=== PATIENT | male | born 1970 | race Caucasian/White ===

== ENCOUNTER 2024-03-24 15:20 | Inpatient (IN) | payer OTHER ==
[~2024-03-24] VITALS: Ht 177.8 cm; Wt 78.4 kg
[2024-03-24] VITALS (43 sets, daily range): BP systolic 84–139; BP diastolic 49–80; TEMP 97.5; O2SAT 98–100
[2024-03-24 16:32] LABS: BASO % 0.2 % (0.0-1.0); HEMATOCRIT 43.6 % (42.0-52.0); LYMPH # 0.5 10^3/uL (1.5-5.0); LYMPH % 3.7 % (24.0-44.0); MEAN CORPUSCULAR HEMOGLOBIN 30.2 pg (27.0-33.0); MEAN CORPUSCULAR HGB CONC 34.4 g/dl (32.0-36.5); MEAN CORPUSCULAR VOLUME 87.7 fl (80.0-96.0); MONO # 0.4 10^3/uL (0.0-0.8); MONO % 3.4 % (2.0-8.0); NEUTROPHILS # 11.8 10^3/uL (1.5-8.5); NEUTROPHILS % 92.2 % (36.0-66.0); PLATELET COUNT, AUTOMATED 173 10^3/uL (150-450); RED BLOOD COUNT 4.97 10^6/uL (4.30-6.10); WHITE BLOOD COUNT 12.8 10^3/uL (4.0-10.0)
[2024-03-24 17:02] LABS: BLOOD UREA NITROGEN 14 MG/DL (9-23); CALCIUM LEVEL 8.6 MG/DL (8.5-10.1); CARBON DIOXIDE LEVEL 24 MMOL/L (20-31); CHLORIDE LEVEL 108 MMOL/L (98-107); CREATININE FOR GFR 0.97 MG/DL (0.70-1.30); GLOMERULAR FILTRATION RATE > 60.0 (>56); GLUCOSE, FASTING 126 MG/DL (60-100); POTASSIUM SERUM 4.2 MMOL/L (3.5-5.1); SODIUM LEVEL 141 MMOL/L (136-145)
[2024-03-24] MEDS: MORPHINE 4 MG/ML 1ML VIAL IV ONE (17:54)
[2024-03-24] MEDS: propofoL 1,000 MG in IV 1 EA IV SCH ×3 (18:05→23:31)
[2024-03-24] MEDS ORDERED: LIDOCAINE W/EPINEPHRINE 1% 20ML VIAL As Ordered ONE (18:15)
[2024-03-24] MEDS ORDERED: PHENYLEPHRINE 0.5% NASAL SPRAY 15 ML As Ordered ONE (18:15)
[2024-03-24] MEDS: CETACAINE SPRAY 5GM TOP ONE (18:20)
[2024-03-24] MEDS ORDERED: propofoL 200 MG/20 ML VIAL ONE (18:26)
[2024-03-24] MEDS ORDERED: MIDAZOLAM 5MG/ML 1ML VIAL As Ordered ONE (18:37)
[2024-03-24] MEDS: MIDAZOLAM INJ 2MG/2ML VIAL IV ONE (18:40)
[2024-03-24] MEDS ORDERED: fentaNYL 100 MCG/2 ML INJECTION As Ordered ONE (19:11)
[2024-03-24] MEDS ORDERED: propofoL 200 MG/20 ML VIAL As Ordered ONE (19:11)
[2024-03-24] MEDS ORDERED: MIDAZOLAM INJ 2MG/2ML VIAL As Ordered ONE (19:11)
[2024-03-24] MEDS ORDERED: ROCURONIUM BROMIDE 50MG/5ML VIAL As Ordered ONE (19:11)
[2024-03-24] MEDS ORDERED: ACETAMINOPHEN 1000MG/100ML IV BAG As Ordered ONE (19:15)
[2024-03-24] MEDS ORDERED: propofoL 500 MG/50 ML VIAL As Ordered ONE (19:32)
[2024-03-24] MEDS ORDERED: ALPR0.25 PO (19:36)
[2024-03-24] MEDS ORDERED: B-12100010 PO (19:36)
[2024-03-24] MEDS ORDERED: [UNRECOGNIZED DRUG - OTHER] PO (19:36)
[2024-03-24] MEDS ORDERED: VITA-168 PO (19:36)
[2024-03-24] MEDS ORDERED: dexmedeTOMIDine (4MCG/ML)200MCG/50ML BTL (PRECEDEX) As Ordered ONE (19:40)
[2024-03-24] MEDS ORDERED: HOME MED LIST COMPLETE! XX SCH (19:40)
[2024-03-24] MEDS ORDERED: MORPHINE 2 MG/ML 1ML VIAL IV PRN (19:45)
[2024-03-24] MEDS ORDERED: oxyCODONE 5MG TAB PO PRN (19:45)
[2024-03-24] MEDS ORDERED: fentaNYL 100 MCG/2 ML INJECTION IV PRN (19:45)
[2024-03-24] MEDS ORDERED: ONDANSETRON 4MG 2ML VIAL IV PRN (19:45)
[2024-03-24] MEDS: LR 1,000 ML IV SCH (21:38)
[2024-03-24] MEDS ORDERED: FENTANYL DRIP LOCK BOX KEY 1 EACH XX PRN (22:00)
[2024-03-24] MEDS: NS (Normal Saline) 0.9% 1,000 ML IV ONE (22:14)
[2024-03-24] MEDS: fentaNYL CITRATE/NaCl 1,000 MCG in IV 1 EA IV SCH (22:24)
[2024-03-24 22:36] LABS: HEMATOCRIT 37.2 % (42.0-52.0); MEAN CORPUSCULAR HEMOGLOBIN 30.2 pg (27.0-33.0); MEAN CORPUSCULAR HGB CONC 34.1 g/dl (32.0-36.5); MEAN CORPUSCULAR VOLUME 88.6 fl (80.0-96.0); PLATELET COUNT, AUTOMATED 154 10^3/uL (150-450); WHITE BLOOD COUNT 13.1 10^3/uL (4.0-10.0)
[2024-03-24 22:37] LABS: HEMOGLOBIN 12.7 g/dl (13.5-17.5)
[2024-03-24] MEDS: dexmedeTOMidine 200 MCG in IV 1 EA IV SCH (22:40)
[2024-03-25] VITALS (59 sets, daily range): BP systolic 79–150; BP diastolic 51–91; TEMP 97.8–98.3; O2SAT 96–100
[2024-03-25] MEDS: NOREPINEPHRINE 4MG IN D5 250ML 4 MG in IV 1 EA IV SCH (01:42)
[2024-03-25 05:07] LABS: BASO % 0.2 % (0.0-1.0); EOS % 0.2 % (0.0-3.0); HEMATOCRIT 34.1 % (42.0-52.0); HEMOGLOBIN 11.7 g/dl (13.5-17.5); LYMPH # 1.3 10^3/uL (1.5-5.0); LYMPH % 10.1 % (24.0-44.0); MEAN CORPUSCULAR HEMOGLOBIN 30.2 pg (27.0-33.0); MEAN CORPUSCULAR HGB CONC 34.3 g/dl (32.0-36.5); MEAN CORPUSCULAR VOLUME 87.9 fl (80.0-96.0); MONO # 1.2 10^3/uL (0.0-0.8); MONO % 9.1 % (2.0-8.0); NEUTROPHILS # 10.4 10^3/uL (1.5-8.5); PLATELET COUNT, AUTOMATED 166 10^3/uL (150-450); RED BLOOD COUNT 3.88 10^6/uL (4.30-6.10)
[2024-03-25 05:49] LABS: ALBUMIN 2.9 G/DL (3.2-5.2); ALKALINE PHOSPHATASE 59 U/L (40-129); ALT/SGPT 18 U/L (7.0-40); AST/SGOT 16 U/L (<34); BILIRUBIN,TOTAL 0.6 MG/DL (0.3-1.2); BLOOD UREA NITROGEN 17 MG/DL (9-23); CALCIUM LEVEL 7.2 MG/DL (8.5-10.1); CARBON DIOXIDE LEVEL 24 MMOL/L (20-31); CHLORIDE LEVEL 109 MMOL/L (98-107); CREATININE FOR GFR 0.88 MG/DL (0.70-1.30); GLOMERULAR FILTRATION RATE > 60.0 (>56); GLUCOSE, FASTING 116 MG/DL (60-100); MAGNESIUM LEVEL 1.6 MG/DL (1.8-2.4); PHOSPHORUS LEVEL 5.5 MG/DL (2.5-4.9); POTASSIUM SERUM 4.3 MMOL/L (3.5-5.1); SODIUM LEVEL 140 MMOL/L (136-145); TOTAL PROTEIN 5.2 G/DL (5.7-8.2)
[2024-03-25 05:57] LABS: ABG BASE EXCESS -1.7 (-2.0-2.0); ABG HCO3 22.3 MMOL/L (22.0-26.0); ABG O2 SATURATION 99.2 % (95.0-99.0); ABG PARTIAL PRESSURE CO2 35.6 mmHg (35.0-45.0); ABG PARTIAL PRESSURE O2 211.9 mmHg (75.0-100.0); ABG STANDARD HCO3 23.1 MMOL/L. (22.0-26.0); ABG TOTAL CO2 23.4 MMOL/L (22.0-29.0); ABG pH (ARTERIAL) 7.415 UNITS (7.350-7.450)
[2024-03-25] MEDS ORDERED: MORPHINE 2 MG/ML 1ML VIAL IV PRN (11:05)
[2024-03-25] MEDS: MAG SULF 1GM/100ML (MAG RUN) 1 GM in IV 1 EA IV ONE (11:29)
[2024-03-25] MEDS ORDERED: KETOROLAC 30 MG/ML 1ML VIAL IV ONE (11:35)
[2024-03-25] MEDS: PANTOPRAZOLE 40MG VIAL IV SCH (11:50)
[2024-03-25] MEDS: KETOROLAC 30 MG/ML 1ML VIAL IV ONE (11:51)
[2024-03-25] MEDS: ACETYLCYSTEINE 20% 4 ML VIAL (200MG/ML) INH SCH (12:32)
[2024-03-25] MEDS ORDERED: PHENYLEPHRINE 0.5% NASAL SPRAY 15 ML ONE (12:40)
[2024-03-25] MEDS ORDERED: PROPOFOL 1,000 MG/100 ML VIAL ONE (12:40)
[2024-03-25] MEDS ORDERED: LIDOCAINE 2% W/EPINEPHRINE 20ML VIAL **PRES FREE ONE (12:40)
[2024-03-25] MEDS: cefTRIAXone SOD 2 GM in DEXTROSE 5% (D5W) ADV/MINI-BAG 50 ML IV SCH (13:35)
[2024-03-25] MEDS: methylPREDNISolone 125MG 2ML VIAL IV SCH (13:35)
[2024-03-25] MEDS: ALBUTEROL SULFATE 2.5MG/0.5ML INH NEB SOLN NEB PRN (19:28)
[2024-03-25] MEDS: ALPRAZolam 0.5 MG TAB PO SCH (20:01)
[2024-03-25] MEDS: RAMELTEON 8 MG TAB (ROZEREM) PO SCH (23:53)
[2024-03-26] VITALS (8 sets, daily range): BP systolic 114–132; BP diastolic 62–91; TEMP 97.5–98.6; O2SAT 95–97
[2024-03-26] MEDS: KETOROLAC 30 MG/ML 1ML VIAL IV PRN (04:43)
[2024-03-26] MEDS ORDERED: CALC500T60 PO (09:48)
[2024-03-26] MEDS ORDERED: LEVO125T4 PO (09:48)
[2024-03-26] MEDS: PANTOPRAZOLE 40MG TAB (PROTONIX) PO SCH (10:14)
[2024-03-26] MEDS: LEVOTHYROXINE 125MCG TABLET (0.125MG) PO SCH (10:14)
[2024-03-26] MEDS: CALCIUM CARBONATE 500 MG CHEW U/D PO SCH ×2 (10:14→19:57)
[2024-03-26 11:06] LABS: BASO % 0.2 % (0.0-1.0); HEMATOCRIT 35.6 % (42.0-52.0); LYMPH # 0.6 10^3/uL (1.5-5.0); LYMPH % 4.2 % (24.0-44.0); MEAN CORPUSCULAR HEMOGLOBIN 30.8 pg (27.0-33.0); MEAN CORPUSCULAR HGB CONC 33.7 g/dl (32.0-36.5); MEAN CORPUSCULAR VOLUME 91.3 fl (80.0-96.0); MONO # 0.4 10^3/uL (0.0-0.8); MONO % 2.7 % (2.0-8.0); NEUTROPHILS # 12.2 10^3/uL (1.5-8.5); NEUTROPHILS % 92.4 % (36.0-66.0); PLATELET COUNT, AUTOMATED 123 10^3/uL (150-450); WHITE BLOOD COUNT 13.2 10^3/uL (4.0-10.0)
[2024-03-26 11:36] LABS: BLOOD UREA NITROGEN 19 MG/DL (9-23); CALCIUM LEVEL 8.1 MG/DL (8.5-10.1); CARBON DIOXIDE LEVEL 26 MMOL/L (20-31); CHLORIDE LEVEL 110 MMOL/L (98-107); CREATININE FOR GFR 0.72 MG/DL (0.70-1.30); GLOMERULAR FILTRATION RATE > 60.0 (>56); GLUCOSE, FASTING 131 MG/DL (60-100); POTASSIUM SERUM 4.4 MMOL/L (3.5-5.1); SODIUM LEVEL 142 MMOL/L (136-145)
[2024-03-26] MEDS: ACETAMINOPHEN 325 MG TAB PO PRN (16:15)
[2024-03-26] MEDS: CALCITRIOL 0.25 MCG CAP (S0169) PO ONE (18:07)
[2024-03-26 18:21] LABS: IONIZED CALCIUM 4.3 MG/DL (4.5-5.3)
[2024-03-26 18:52] LABS: BLOOD UREA NITROGEN 22 MG/DL (9-23); CALCIUM LEVEL 8.3 MG/DL (8.5-10.1); CARBON DIOXIDE LEVEL 25 MMOL/L (20-31); CHLORIDE LEVEL 109 MMOL/L (98-107); CREATININE FOR GFR 0.74 MG/DL (0.70-1.30); GLOMERULAR FILTRATION RATE > 60.0 (>56); GLUCOSE, FASTING 145 MG/DL (60-100); POTASSIUM SERUM 4.4 MMOL/L (3.5-5.1); SODIUM LEVEL 142 MMOL/L (136-145)
[2024-03-26 18:53] LABS: PTH INTACT 20.3 PG/ML (18.5-88.0)
[2024-03-26] MEDS ORDERED: RAMELTEON 8 MG TAB (ROZEREM) PO SCH (23:30)
[2024-03-27 01:55] LABS: IONIZED CALCIUM 4.4 MG/DL (4.5-5.3)
[2024-03-27 02:25] LABS: ALBUMIN 2.8 G/DL (3.2-5.2); BLOOD UREA NITROGEN 23 MG/DL (9-23); CALCIUM LEVEL 8.3 MG/DL (8.5-10.1); CARBON DIOXIDE LEVEL 27 MMOL/L (20-31); CHLORIDE LEVEL 110 MMOL/L (98-107); CREATININE FOR GFR 0.76 MG/DL (0.70-1.30); GLOMERULAR FILTRATION RATE > 60.0 (>56); GLUCOSE, FASTING 137 MG/DL (60-100); POTASSIUM SERUM 4.5 MMOL/L (3.5-5.1); PTH INTACT 22.8 PG/ML (18.5-88.0); SODIUM LEVEL 141 MMOL/L (136-145)
[2024-03-27 05:15] VITALS: BP 123/87; TEMP 97.5; O2SAT 94
[2024-03-27 06:24] LABS: BASO % 0.1 % (0.0-1.0); HEMATOCRIT 33.1 % (42.0-52.0); HEMOGLOBIN 11.3 g/dl (13.5-17.5); LYMPH # 0.7 10^3/uL (1.5-5.0); LYMPH % 4.6 % (24.0-44.0); MEAN CORPUSCULAR HEMOGLOBIN 30.3 pg (27.0-33.0); MEAN CORPUSCULAR HGB CONC 34.1 g/dl (32.0-36.5); MEAN CORPUSCULAR VOLUME 88.7 fl (80.0-96.0); MONO # 0.6 10^3/uL (0.0-0.8); MONO % 3.9 % (2.0-8.0); NEUTROPHILS # 14.4 10^3/uL (1.5-8.5); NEUTROPHILS % 90.5 % (36.0-66.0); PLATELET COUNT, AUTOMATED 145 10^3/uL (150-450); RED BLOOD COUNT 3.73 10^6/uL (4.30-6.10); WHITE BLOOD COUNT 15.9 10^3/uL (4.0-10.0)
[2024-03-27 06:45] LABS: BLOOD UREA NITROGEN 25 MG/DL (9-23); CALCIUM LEVEL 8.3 MG/DL (8.5-10.1); CARBON DIOXIDE LEVEL 27 MMOL/L (20-31); CHLORIDE LEVEL 108 MMOL/L (98-107); CREATININE FOR GFR 0.81 MG/DL (0.70-1.30); GLOMERULAR FILTRATION RATE > 60.0 (>56); GLUCOSE, FASTING 128 MG/DL (60-100); POTASSIUM SERUM 4.5 MMOL/L (3.5-5.1); SODIUM LEVEL 142 MMOL/L (136-145)
[2024-03-27] MEDS: CALCITRIOL 0.25 MCG CAP (S0169) PO SCH (08:51)
[2024-03-27 09:56] LABS: IONIZED CALCIUM 4.3 MG/DL (4.5-5.3)
[2024-03-27 10:29] LABS: ALBUMIN 2.9 G/DL (3.2-5.2); BLOOD UREA NITROGEN 27 MG/DL (9-23); CALCIUM LEVEL 8.4 MG/DL (8.5-10.1); CARBON DIOXIDE LEVEL 26 MMOL/L (20-31); CHLORIDE LEVEL 108 MMOL/L (98-107); CREATININE FOR GFR 0.82 MG/DL (0.70-1.30); GLOMERULAR FILTRATION RATE > 60.0 (>56); GLUCOSE, FASTING 157 MG/DL (60-100); POTASSIUM SERUM 4.2 MMOL/L (3.5-5.1); SODIUM LEVEL 142 MMOL/L (136-145)
[2024-03-27] MEDS ORDERED: CALC1CAP31 PO (10:52)
== END 2024-03-27 12:09 | disposition home or self-care (01) | DRG 167 ==
LOC: M ED 15:20 → M SDC 19:07 → M ICU 20:18 → M MSPAV 03-26 14:25
PROVIDERS: ADMIT Otolaryngology; ATTEND Internal Medicine
PROC: 0W360ZZ Control Bleeding in Neck, Open Approach (ICD-10-PCS; 2024-03-24)
PROC: 5A1935Z Respiratory Ventilation, Less than 24 Consecutive Hours (ICD-10-PCS; 2024-03-24)
PROC: 0BH17EZ Insertion of Endotracheal Airway into Trachea, Via Natural or Artificial Opening (ICD-10-PCS; 2024-03-24)
PROC: 0BC Respiratory System, Extirpation (ICD-10-PCS; principal; 2024-03-24 06:49)
DX: J96.01 Acute respiratory failure with hypoxia (principal); L76.32 Postprocedural hematoma of skin and subcutaneous tissue following other procedure; L76.22 Postprocedural hemorrhage of skin and subcutaneous tissue following other procedure; Y83.6 Removal of other organ (partial) (total) as the cause of abnormal reaction of the patient, or of later complication, without mention of misadventure at the time of the procedure; E89.0 Postprocedural hypothyroidism; C73 Malignant neoplasm of thyroid gland; E21.0 Primary hyperparathyroidism; F41.9 Anxiety disorder, unspecified; Z79.890 Hormone replacement therapy; Z79.899 Other long term (current) drug therapy